=== PATIENT | male | born 1965 | race Caucasian/White ===

== ENCOUNTER → 2017-03-24 | Outpatient (CLI) | payer MEDICAID ==
[2017-03-24 07:53] LABS: Basophils # (A) 0.1 k/uL (0-0.2); Basophils % (A) 1 %; CH 32.6; CHCM 32.1; Eosinophils # (A) 0.2 k/uL (0-0.7); Eosinophils % (A) 4 %; HDW 2.24; HGB 15.5 gm/dL (13.0-17.5); Luc # (Auto) 0.13; Luc % (Auto) 2; Lymphocytes # (A) 1.7 k/uL (1.0-4.8); Lymphocytes % (A) 28 %; MCH 31.6 pg (25.0-35.0); MCHC 30.9 g/dL (31.0-37.0); MCV 102.2 fL (80.0-100.0); Macrocytosis Slight; Mean Platelet Volume 7.6; Monocytes # (A) 0.4 k/uL (0-1.0); Monocytes % (A) 7 %; Neutrophils # (A) 3.5 k/uL (1.3-7.7); Neutrophils % (A) 58 %; RBC 4.89 m/uL (4.30-5.90); RDW 13.1 % (11.5-15.5); WBC 6.1 k/uL (3.8-10.6); WBC (Perox) 5.96
[2017-03-24 11:37] LABS: Iron 86 ug/dL (49-181)
[2017-03-24 11:46] LABS: % Iron Saturation 31.7 % (20-50); Total Iron Binding Capacity 271 ug/dL (261-462)
[2017-03-24 12:44] LABS: Vitamin B12 618 pg/mL (239-931)
== END | disposition home or self-care (01) ==
LOC: LABWHC1 07:16
PROVIDERS: ATTEND Internal Medicine Geriatric Medicine
DX: D64.9 Anemia, unspecified (principal)
CPT/HCPCS: 36415; 82607; 82728; 82746; 83540; 83550; 85025

== ENCOUNTER → 2017-06-29 | Outpatient (CLI) | payer MEDICAID ==
[2017-06-29 07:58] LABS: Basophils # (A) 0.1 k/uL (0-0.2); Basophils % (A) 1 %; CH 33.3; CHCM 33.6; Eosinophils # (A) 0.4 k/uL (0-0.7); Eosinophils % (A) 6 %; HCT 48.1 % (39.0-53.0); HDW 2.34; HGB 15.6 gm/dL (13.0-17.5); Luc # (Auto) 0.14; Luc % (Auto) 2; Lymphocytes # (A) 1.8 k/uL (1.0-4.8); Lymphocytes % (A) 28 %; MCH 32.3 pg (25.0-35.0); MCHC 32.5 g/dL (31.0-37.0); MCV 99.5 fL (80.0-100.0); Monocytes # (A) 0.5 k/uL (0-1.0); Monocytes % (A) 7 %; Neutrophils # (A) 3.5 k/uL (1.3-7.7); Neutrophils % (A) 55 %; RBC 4.84 m/uL (4.30-5.90); RDW 13.4 % (11.5-15.5); WBC 6.3 k/uL (3.8-10.6); WBC (Perox) 6.32
[2017-06-29 09:46] LABS: ALT 43 U/L (21-72); AST 31 U/L (17-59); Alkaline Phosphatase 58 U/L (38-126); Anion Gap 8 mmol/L; Blood Urea Nitrogen 14 mg/dL (9-20); Calcium 9.3 mg/dL (8.4-10.2); Carbon Dioxide 29 mmol/L (22-30); Chloride 103 mmol/L (98-107); Cholesterol 203 mg/dL (<200); Glucose 102 mg/dL (74-99); HDL Cholesterol 78 mg/dL (40-60); Iron 162 ug/dL (49-181); Non-African American GFR(MDRD) >60 (>60 ml/min/1.73 sqM); Potassium 5.6 mmol/L (3.5-5.1); Sodium 140 mmol/L (137-145); Total Bilirubin 0.7 mg/dL (0.2-1.3); Total Protein 6.9 g/dL (6.3-8.2)
[2017-06-29 09:55] LABS: % Iron Saturation 60.4 % (20-50); Total Iron Binding Capacity 268 ug/dL (261-462)
[2017-06-29 10:17] LABS: Prostate Specific Antigen 0.55 ng/mL (0.00-4.00)
[2017-06-29 10:35] LABS: Vitamin B12 843 pg/mL (239-931)
[2017-06-29 11:34] LABS: Hemoglobin A1C 5.5 % (4.2-6.1)
== END | disposition home or self-care (01) ==
LOC: LABWHC1 07:23
PROVIDERS: ATTEND Internal Medicine Geriatric Medicine
DX: E78.5 Hyperlipidemia, unspecified (principal); R03.0 Elevated blood-pressure reading, without diagnosis of hypertension; R73.9 Hyperglycemia, unspecified; N40.0 Benign prostatic hyperplasia without lower urinary tract symptoms; D64.9 Anemia, unspecified
CPT/HCPCS: 36415; 80053; 80061; 82607; 82746; 83036; 83540; 83550; 84153; 84439; 84443; 85025

== ENCOUNTER → 2018-09-24 | Outpatient (CLI) | payer MEDICAID ==
[2018-09-24 13:50] LABS: Basophils # (A) 0.1 k/uL (0-0.2); Basophils % (A) 1 %; Eosinophils # (A) 0.3 k/uL (0-0.7); Eosinophils % (A) 4 %; HCT 42.5 % (39.0-53.0); HGB 13.8 gm/dL (13.0-17.5); Lymphocytes # (A) 1.7 k/uL (1.0-4.8); Lymphocytes % (A) 24 %; MCH 31.7 pg (25.0-35.0); MCHC 32.5 g/dL (31.0-37.0); MCV 97.5 fL (80.0-100.0); Mean Platelet Volume 7.7; Monocytes # (A) 0.5 k/uL (0-1.0); Monocytes % (A) 8 %; Neutrophils # (A) 4.3 k/uL (1.3-7.7); Neutrophils % (A) 62 %; Platelet Count 259 k/uL (150-450); RBC 4.35 m/uL (4.30-5.90); RDW 12.7 % (11.5-15.5)
[2018-09-24 19:12] LABS: ALT 56 U/L (10-49); AST 53 U/L (14-35)
== END | disposition home or self-care (01) ==
LOC: LABWHC1 12:50
PROVIDERS: ATTEND Dermatology Procedural Dermatology
DX: B35.1 Tinea unguium (principal)
CPT/HCPCS: 36415; 84450; 84460; 85025

== ENCOUNTER → 2020-10-13 | Outpatient (CLI) | payer MEDICAID ==
[2020-10-13 09:34] LABS: Basophils # (A) 0.1 k/uL (0-0.2); Basophils % (A) 1 %; Eosinophils # (A) 0.2 k/uL (0-0.7); Eosinophils % (A) 3 %; HCT 49.8 % (39.0-53.0); Lymphocytes # (A) 1.8 k/uL (1.0-4.8); Lymphocytes % (A) 29 %; MCH 31.9 pg (25.0-35.0); MCHC 32.2 g/dL (31.0-37.0); MCV 99.1 fL (80.0-100.0); Mean Platelet Volume 7.9; Monocytes # (A) 0.4 k/uL (0-1.0); Monocytes % (A) 7 %; Neutrophils # (A) 3.8 k/uL (1.3-7.7); Neutrophils % (A) 58 %; Platelet Count 330 k/uL (150-450); RBC 5.03 m/uL (4.30-5.90); RDW 13.2 % (11.5-15.5); WBC 6.5 k/uL (3.8-10.6)
[2020-10-13 16:50] LABS: ALT 20 U/L (10-49); AST 22 U/L (14-35); African American GFR (CKD) 88.4 (60.0-200.0); Alkaline Phosphatase 59 U/L (41-126); BUN/Creat Ratio 14.55 Ratio (12.00-20.00); Calcium 9.3 mg/dL (8.7-10.3); Carbon Dioxide 28.9 mmol/L (21.6-31.8); Chloride 105 mmol/L (96-109); Chol/HDL Ratio 2.42; Cholesterol 186 mg/dL (0-200); Glucose 101 mg/dL (70-110); Non-African American GFR(CKD) 76.2 (60.0-200.0); Potassium 4.4 mmol/L (3.5-5.5); Sodium 140 mmol/L (135-145); Total Bilirubin 0.8 mg/dL (0.2-1.2); Total Protein 6.4 g/dL (6.2-8.2); Triglycerides <50.0 mg/dL (0.0-149.0)
[2020-10-13 17:53] LABS: Hemoglobin A1C 5.3 % (4.0-6.0)
[2020-10-13 18:54] LABS: Prostate Specific Antigen 0.6 ng/mL (0.0-3.5)
== END | disposition home or self-care (01) ==
LOC: LABWHC1 08:10
PROVIDERS: ATTEND Internal Medicine Geriatric Medicine
DX: Z00.00 Encounter for general adult medical examination without abnormal findings (principal); E78.5 Hyperlipidemia, unspecified; D68.2 Hereditary deficiency of other clotting factors; R73.9 Hyperglycemia, unspecified; N40.0 Benign prostatic hyperplasia without lower urinary tract symptoms
CPT/HCPCS: 36415; 80053; 80061; 81241; 83036; 84153; 84443; 85025

== ENCOUNTER 2021-08-13 17:58 | Emergency (ER) | payer MEDICAID ==
--- NOTE | 2021-08-13 19:35 | ED ---
Skin/Abscess/FB HPI - General Chief complaint: Skin/Abscess/Foreign Body Stated complaint: bite on face Time Seen by Provider: 08/13/21 18:31 Source: patient, RN notes reviewed Mode of arrival: ambulatory Limitations: no limitations - History of Present Illness Initial comments: Patient is a 55-year-old male that presents to the emergency department com plaining of right sided upper lip but bite. He notes he was in [facility] about a month ago I blood. Notes it swelled up and got better on its own after a week or 2. He notes that recently started to swell.. He notes he started expressing suffered or squeezing it. He notes that he gets very minimal discharge noted with does have some dark colored blood coming from. He is unsure what kind of bug bite this. 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 He was otherwise well-appearing. He denied any chest pain short of breath headache nausea vomiting diarrhea constipation fever fatigue chills. - Related Data Previous Rx's Medication Instructions Recorded Cephalexin [Keflex] 500 mg PO Q6HR #40 cap 08/13/21 Sulfamethox-Tmp 800-160Mg [Bactrim 1 tab PO Q12HR 10 Days #20 tab 08/13/21 DS 800-160 mg] Allergies Allergy/AdvReac Type Severity Reaction Status Date / Time No Known Allergies Allergy Verified 08/13/21 18:20 Review of Systems ROS Statement: Those systems with pertinent positive or pertinent negative responses have been documented in the HPI. ROS Other: All systems not noted in ROS Statement are negative. Past Medical History Past Medical History: No Reported History History of Any Multi-Drug Resistant Organisms: None Reported Past Surgical History: No Surgical Hx Reported Past Psychological History: No Psychological Hx Reported Smoking Status: Never smoker Past Alcohol Use History: None Reported Past Drug Use History: None Reported General Exam Limitations: no limitations General appearance: alert, in no apparent distress Head exam: Present: atraumatic, normocephalic, normal inspection Eye exam: Present: normal appearance, PERRL, EOMI. Absent: scleral icterus, conjunctival injection, periorbital swelling ENT exam: Present: normal exam, mucous membranes moist Neck exam: Present: normal inspection Respiratory exam: Present: normal lung sounds bilaterally. Absent: respiratory distress, wheezes, rales, rhonchi, stridor Cardiovascular Exam: Present: regular rate, normal rhythm, normal heart sounds. Absent: systolic murmur, diastolic murmur, rubs, gallop, clicks Extremities exam: Present: normal inspection, full ROM, normal capillary refill. Absent: tenderness, pedal edema, joint swelling, calf tenderness Neurological exam: Present: alert, oriented X3 Psychiatric exam: Present: normal affect, normal mood Skin exam: Present: warm, dry, intact, normal color, erythema (Right upper lip, consistent with sinusitis.). Absent: rash Course Vital Signs 08/13/21 18:20 Temperature 97.9 F Pulse Rate 73 Respiratory 16 Rate Blood Pressure 132/66 O2 Sat by Pulse 98 Oximetry Medical Decision Making - Medical Decision Making 55-year-old male with a right upper lip insect bite there is erythematous and minimally tender. Aerobic wound culture obtained. Patient will be sent antibiotics to pharmacy. Case discussed with Dr. Cardona, patient discharge home with follow-up primary care. Disposition Clinical Impression: Cellulitis, Insect bite Disposition: HOME SELF-CARE Condition: Stable Instructions (If sedation given, give patient instructions): Cellulitis (ED) Additional Instructions: Please return to the Emergency Department if symptoms worsen or any other concerns. Taken Biaxin as prescribed until complete. Follow-up primary care 1-2 days. Is patient prescribed a controlled substance at d/c from ED?: No Referrals: Andrew Demarco MD [Primary Care Provider] - 1-2 days Time of Disposition: 19:34
[2021-08-13 20:37] VITALS: BP 131/84; PULSE 86; RESP 18; TEMP 99.1
== END 2021-08-13 20:29 | disposition home or self-care (01) ==
LOC: EC 17:58
DX: L03.90 Cellulitis, unspecified (principal); W57.XXXA Bitten or stung by nonvenomous insect and other nonvenomous arthropods, initial encounter
CPT/HCPCS: 87070; 87205; 99283

== ENCOUNTER → 2021-10-12 | Outpatient (CLI) | payer MEDICAID ==
[2021-10-12 11:22] LABS: Basophils # (A) 0.08 X 10*3/uL (0.00-0.10); Basophils % (A) 1.1 %; Eosinophils # (A) 0.23 X 10*3/uL (0.04-0.35); Eosinophils % (A) 3.3 %; HCT 46.9 % (39.6-50.0); HGB 14.9 g/dL (13.0-17.0); Lymphocytes # (A) 2.01 X 10*3/uL (0.90-5.00); Lymphocytes % (A) 28.7 %; MCH 30.2 pg (27.0-32.0); MCHC 31.8 g/dL (32.0-37.0); MCV 94.9 fL (80.0-97.0); Monocytes # (A) 0.74 X 10*3/uL (0.20-1.00); Monocytes % (A) 10.6 %; Neutrophils # (A) 3.93 X 10*3/uL (1.80-7.70); Neutrophils % (A) 56.2 %; Platelet Count 334 X 10*3/uL (140-440); RBC 4.94 X 10*6/uL (4.40-5.60); RDW 12.8 % (11.5-14.5)
[2021-10-12 12:26] LABS: % Iron Saturation 44.99 (15.00-50.00); African American GFR (CKD) 87.7 (60.0-200.0); Albumin 4.4 g/dL (3.8-4.9); Albumin/Globulin Ratio 2.31 (1.60-3.17); Anion Gap 13.2 mmol/L (10.00-18.00); BUN/Creat Ratio 9.73 Ratio (12.00-20.00); Blood Urea Nitrogen 10.7 mg/dL (9.0-27.0); Calcium 9.4 mg/dL (8.7-10.3); Carbon Dioxide 25.1 mmol/L (20.0-27.5); Ferritin 80.5 ng/mL (22.0-322.0); Folate, Serum 8.6 ng/mL (4.40-31.00); Globulin 1.9 g/dL (1.6-3.3); HDL Cholesterol 66.5 mg/dL (40.00-60.00); Non-African American GFR(CKD) 75.7 (60.0-200.0); Potassium 5.1 mmol/L (3.5-5.5); Prostate Specific Antigen 0.5 ng/mL (0.00-3.50); Total Bilirubin 0.4 mg/dL (0.30-1.20); Total Protein 6.3 g/dL (6.2-8.2); Triglycerides 41.9 mg/dL (0.00-149.00)
[2021-10-12 12:37] LABS: Chol/HDL Ratio 2.89 Ratio
== END | disposition home or self-care (01) ==
LOC: LABWHC1 07:26
PROVIDERS: ATTEND Internal Medicine Geriatric Medicine
DX: Z00.00 Encounter for general adult medical examination without abnormal findings (principal); D64.9 Anemia, unspecified; E78.5 Hyperlipidemia, unspecified; N40.0 Benign prostatic hyperplasia without lower urinary tract symptoms; R73.9 Hyperglycemia, unspecified
CPT/HCPCS: 36415; 80053; 80061; 82607; 82728; 82746; 83036; 83540; 83550; 83721; 84153; 84443; 85025

== ENCOUNTER → 2023-01-18 | Outpatient (CLI) | payer OTHER ==
[2023-01-18 10:34] LABS: Basophils # (A) 0.11 X 10*3/uL (0.00-0.10); Basophils % (A) 1.5 %; Eosinophils # (A) 0.68 X 10*3/uL (0.04-0.35); Eosinophils % (A) 9.6 %; HCT 47.9 % (39.6-50.0); HGB 15.9 g/dL (13.0-17.0); Immature Grans, Automated 0.1 %; Lymphocytes # (A) 2.33 X 10*3/uL (0.90-5.00); Lymphocytes % (A) 32.8 %; MCHC 33.2 g/dL (32.0-37.0); MCV 93.4 fL (80.0-97.0); Mean Platelet Volume 11.3 fL (9.5-12.2); Monocytes # (A) 0.66 X 10*3/uL (0.20-1.00); Monocytes % (A) 9.3 %; NRBC Per 100 WBC 0 /100 WBCS (0.0-0.0); Neutrophils # (A) 3.31 X 10*3/uL (1.80-7.70); Neutrophils % (A) 46.7 %; Platelet Count 351 X 10*3/uL (140-440); RBC 5.13 X 10*6/uL (4.40-5.60)
[2023-01-18 11:11] LABS: ALT 24 U/L (10-49); AST 20 U/L (14-35); African American GFR (CKD) 82.6 (60.0-200.0); Albumin 4.6 g/dL (3.8-4.9); Albumin/Globulin Ratio 2.05 (1.60-3.17); Alkaline Phosphatase 65 U/L (41-126); BUN/Creat Ratio 9.13 Ratio (12.00-20.00); Blood Urea Nitrogen 10.5 mg/dL (9.0-27.0); Calcium 9.5 mg/dL (8.7-10.3); Carbon Dioxide 23.9 mmol/L (20.0-27.5); Chloride 104 mmol/L (96-109); Chol/HDL Ratio 3.06 Ratio; Globulin 2.3 g/dL (1.6-3.3); Glucose 104 mg/dL (70-110); LDL Cholesterol,Calculated 119.7 mg/dL (0.0-131.0); Non-African American GFR(CKD) 71.2 (60.0-200.0); Potassium 4.4 mmol/L (3.5-5.5); Sodium 141 mmol/L (135-145); Total Protein 6.9 g/dL (6.2-8.2); VLDL Calculation 9.48 mg/dL (5.00-40.00)
== END | disposition home or self-care (01) ==
LOC: LABWHC1 07:05
PROVIDERS: ATTEND Internal Medicine Geriatric Medicine
DX: Z00.00 Encounter for general adult medical examination without abnormal findings (principal); E78.5 Hyperlipidemia, unspecified; N40.0 Benign prostatic hyperplasia without lower urinary tract symptoms; R73.9 Hyperglycemia, unspecified
CPT/HCPCS: 36415; 80053; 80061; 83036; 84153; 84443; 85025

== ENCOUNTER 2023-03-31 09:35 | Day surgery (SDC) | payer OTHER ==
[2023-03-29 12:47] VITALS: BMI 24.4
[~2023-03-31 09:35] MED LIST: LACTATED RINGERS 1,000 ML IV SCH; LIDOCAINE 1% (10MG/ML) FOR IV START INTRADERMA PRN
[2023-03-31 09:56] VITALS: TEMP 97.6
[2023-03-31] MEDS ORDERED: PROPOFOL 10 MG/ML 20 ML VIAL IV ONE (10:25)
--- NOTE | 2023-03-31 10:54 | P.PCN ---
Date of Procedure: 03/31/23 Procedure(s) Performed: BRIEF HISTORY: Patient is a 57-year-old pleasant white male scheduled for an elective colonoscopy as a part of screening for colon cancer. PROCEDURE PERFORMED: Colonoscopy with snare polypectomy and Endo Clip placement. PREOPERATIVE DIAGNOSIS: SCREENING FOR COLON CANCER. IV sedation per Anesthesia. PROCEDURE: After informed consent was obtained, the patient, was brought into the endoscopy unit. IV sedation was administered by Anesthesia under continuous monitoring. Digital rectal examination was normal. Initially the Olympus CF-160 flexible video colonoscope was then inserted in the rectum, gradually advanced into the cecum without any difficulty. Careful examination was performed as the scope was gradually being withdrawn. Ileocecal valve and the appendiceal orifice were visualized and appeared normal. Prep was excellent. Mucosa of the cecum appeared normal. Just proximal to the ileocecal valve there was a 3 cm round flat/broad-based polyp which was removed in a piecemeal fashion and almost complete polypectomy was performed. Following the polypectomy 3 endoclips were placed to prevent post-polypectomy bleeding. Rest of the, ascending colon, transverse colon, descending colon, sigmoid colon, and rectum appeared normal. Retroflexion was performed in the rectum and no lesions were seen. The patient tolerated the procedure well. IMPRESSION: 3 cm round flat/broad-based ascending colon polyp just proximal to the ileocecal valve status post piecemeal snare polypectomy followed by Endo Clip placement as described above Rest of the colon appeared normal RECOMMENDATIONS: Findings of this examination were discussed with the patient as well as his family. He was advised to follow up in office in 1 week to discuss the biopsy results and based the biopsy results will plan a repeat colonoscopy in 3-6 months to ensure complete polypectomy
[2023-03-31 11:22] VITALS: BP 117/71; PULSE 51; RESP 16
== END 2023-03-31 11:40 | disposition home or self-care (01) ==
LOC: ORWHC2ENDO 09:35
PROVIDERS: ATTEND Internal Medicine Gastroenterology
DX: Z12.11 Encounter for screening for malignant neoplasm of colon (principal); D12.2 Benign neoplasm of ascending colon; Z79.899 Other long term (current) drug therapy
CPT/HCPCS: 88305; 45382; 45385; J2704

== ENCOUNTER 2023-10-20 13:53 | Day surgery (SDC) | payer OTHER ==
[2023-10-20] MEDS: LACTATED RINGERS 1,000 ML IV SCH ×2 (15:01→16:00)
[2023-10-20 15:11] VITALS: TEMP 97.5
[2023-10-20] MEDS ORDERED: PROPOFOL 10 MG/ML 20 ML VIAL IV ONE (16:01)
--- NOTE | 2023-10-20 16:20 | P.PCN ---
Date of Procedure: 10/20/23 Procedure(s) Performed: BRIEF HISTORY: Patient is a 58-year-old pleasant white male scheduled for an elective colonoscopy as a part of surveillance of large colon polyp that was noted on screening colonoscopy in March 2023. He was noted to have a 3 cm flat broad-based polyp in the ascending colon that was removed by piecemeal snare polypectomy and biopsy revealed tubular villous adenoma. He scheduled for a follow-up colonoscopy today. PROCEDURE PERFORMED: Colonoscopy with biopsy. PREOPERATIVE DIAGNOSIS: Follow-up large colon polyp noted on colonoscopy in March 2023. IV sedation per Anesthesia. PROCEDURE: After informed consent was obtained, the patient, was brought into the endoscopy unit. IV sedation was administered by Anesthesia under continuous monitoring. Digital rectal examination was normal. Initially the Olympus CF-160 flexible video colonoscope was then inserted in the rectum, gradually advanced into the cecum without any difficulty. Careful examination was performed as the scope was gradually being withdrawn. Ileocecal valve and the appendiceal orifice were visualized and appeared normal. Prep was excellent. Mucosa of the cecum, appeared normal. In the ascending colon there was a 3 mm residual polyp at the site of previous polypectomy which was removed by cold biopsy. Rest of the ascending colon, transverse colon, descending colon, sigmoid colon, and rectum appeared normal. Retroflexion was performed in the rectum and no lesions were seen. Scattered sigmoid diverticulosis. The patient tolerated the procedure well. IMPRESSION: 3 mm ascending colon polyp status post cold biopsy Scattered sigmoid diverticulosis RECOMMENDATIONS: Findings of this examination were discussed with the patient well as his family. He was advised to follow with the biopsy results and have a repeat colonoscopy in 3 years..
[2023-10-20 17:06] VITALS: BP 133/76; PULSE 67; RESP 20
== END 2023-10-20 17:00 | disposition home or self-care (01) ==
LOC: ORWHC2ENDO 13:53
PROVIDERS: ATTEND Internal Medicine Gastroenterology
DX: Z12.11 Encounter for screening for malignant neoplasm of colon (principal); K63.5 Polyp of colon; K57.30 Diverticulosis of large intestine without perforation or abscess without bleeding; Z86.010 Personal history of colon polyps; Z79.899 Other long term (current) drug therapy
CPT/HCPCS: 88305; 45380; J2704

== ENCOUNTER → 2024-01-10 | Outpatient (CLI) | payer OTHER ==
[2024-01-10 09:29] LABS: Appearance,Urine Clear (Clear); Bilirubin,Urine Negative (Negative); Blood,Urine Negative (Negative); Color,Urine Yellow; Glucose,Urine (UA) Negative (Negative); Ketones,Urine Negative (Negative); Leukocyte Esterase,Urine Negative (Negative); Nitrite,Urine Negative (Negative); PH, Urine 5.5 (5.0-8.0); Protein,Urine Negative (Negative); Specific Gravity,Urine 1.021 (1.001-1.035); Urobilinogen,Urine <2.0 mg/dL (<2.0)
[2024-01-10 11:54] LABS: WBC 5.89 X 10*3/uL (4.50-10.00)
[2024-01-10 11:55] LABS: Basophils # (A) 0.07 X 10*3/uL (0.00-0.10); Basophils % (A) 1.2 %; Eosinophils # (A) 0.16 X 10*3/uL (0.04-0.35); Eosinophils % (A) 2.7 %; HCT 45.9 % (39.6-50.0); HGB 15.5 g/dL (13.0-17.0); Lymphocytes # (A) 1.73 X 10*3/uL (0.90-5.00); Lymphocytes % (A) 29.4 %; MCH 31.5 pg (27.0-32.0); MCHC 33.8 g/dL (32.0-37.0); MCV 93.3 FL (80.0-97.0); Mean Platelet Volume 10.8 FL (9.5-12.2); Monocytes # (A) 0.65 X 10*3/uL (0.20-1.00); NRBC Per 100 WBC 0 X 10*3/uL (0.00-0.01); Neutrophils # (A) 3.26 X 10*3/uL (1.80-7.70); Neutrophils % (A) 55.4 %; Platelet Count 306 X 10*3/uL (140-440); RBC 4.92 X 10*6/uL (4.40-5.60); RDW 13.1 % (11.5-14.5)
[2024-01-10 13:28] LABS: % Iron Saturation 40.55 (15.00-50.00); ALT 20 U/L (10-49); AST 22 U/L (14-35); Albumin 4.4 g/dL (3.8-4.9); Alkaline Phosphatase 59 U/L (41-126); BUN/Creat Ratio 7.27 Ratio (12.00-20.00); C Reactive Protein, High Sens 0.204 mg/L (0.000-3.000); Calcium 9.5 mg/dL (8.7-10.3); Carbon Dioxide 26.3 mmol/L (21.6-31.8); Chloride 106 mmol/L (96-109); Chol/HDL Ratio 2.48 Ratio; Ferritin 82.1 ng/mL (22.0-322.0); Globulin 2.1 g/dL (1.6-3.3); Glucose 103 mg/dL (70-110); Iron 118 UG/DL (65-175); LDL Cholesterol,Calculated 96.2 mg/dL (0.0-131.0); Phosphorus 2.9 mg/dL (2.4-5.1); Potassium 4.6 mmol/L (3.5-5.5); Prostate Specific Antigen 0.46 ng/mL (0.000-3.500); Sodium 142 mmol/L (135-145); T4, Free (Free Thyroxine) 1.29 ng/dL (0.80-1.80); Total Bilirubin 0.4 mg/dL (0.3-1.2); Total Iron Binding Capacity 291 UG/DL (228-460); Total Protein 6.5 g/dL (6.2-8.2); Uric Acid 6.1 mg/dL (3.7-8.7); VLDL Calculation 6.52 mg/dL (5.00-40.00)
[2024-01-10 14:23] LABS: Thyroid Peroxidase Antibodies <9.0 U/mL (0.0-33.0)
[2024-01-11 09:23] LABS: Lipoprotein A 69 mg/dL (0-30)
[2024-01-17 07:37] LABS: Casein IgG <2.0 mcg/mL (<2.0)
== END | disposition home or self-care (01) ==
LOC: LABWHC1 07:12
PROVIDERS: ATTEND Family Medicine
DX: K52.9 Noninfective gastroenteritis and colitis, unspecified (principal); J30.9 Allergic rhinitis, unspecified; D68.8 Other specified coagulation defects; E06.3 Autoimmune thyroiditis; E34.9 Endocrine disorder, unspecified; E78.00 Pure hypercholesterolemia, unspecified; R73.09 Other abnormal glucose; R53.83 Other fatigue
CPT/HCPCS: 36415; 80053; 80061; 81003; 82306; 82607; 82627; 82728; 82746; 83036; 83090; 83540; 83550; 83695; 83735; 84100; 84140; 84153; 84403; 84432; 84439; 84443; 84481; 84482; 84550; 85025; 85384; 86001; 86141; 86376

== ENCOUNTER → 2024-06-19 | Outpatient (CLI) | payer OTHER ==
[2024-06-19 10:39] LABS: Basophils % (A) 1.9 %; Eosinophils # (A) 0.28 X 10*3/uL (0.04-0.35); Eosinophils % (A) 5.3 %; HCT 46.9 % (39.6-50.0); HGB 15.2 g/dL (13.0-17.0); Lymphocytes # (A) 1.58 X 10*3/uL (0.90-5.00); Lymphocytes % (A) 30.1 %; MCHC 32.4 g/dL (32.0-37.0); MCV 98.7 FL (80.0-97.0); Mean Platelet Volume 10.9 FL (9.5-12.2); Monocytes # (A) 0.58 X 10*3/uL (0.20-1.00); NRBC Per 100 WBC 0 X 10*3/uL (0.00-0.01); Neutrophils % (A) 51.5 %; Platelet Count 342 X 10*3/uL (140-440); RBC 4.75 X 10*6/uL (4.40-5.60); WBC 5.25 X 10*3/uL (4.50-10.00)
[2024-06-19 10:56] LABS: ALT 20 U/L (10-49); AST 20 U/L (14-35); Albumin 4.5 g/dL (3.8-4.9); Albumin/Globulin Ratio 2.25 Ratio (1.60-3.17); Alkaline Phosphatase 66 U/L (41-126); BUN/Creat Ratio 11.27 Ratio (12.00-20.00); Blood Urea Nitrogen 12.4 mg/dL (9.0-27.0); Calcium 9.2 mg/dL (8.7-10.3); Chloride 103 mmol/L (96-109); Glucose 105 mg/dL (70-110); LDH 143 U/L (120-246); Phosphorus 3.3 mg/dL (2.4-5.1); Potassium 4.6 mmol/L (3.5-5.5); Sodium 143 mmol/L (135-145); Total Bilirubin 0.3 mg/dL (0.3-1.2); Total Protein 6.5 g/dL (6.2-8.2); Uric Acid 5.8 mg/dL (3.7-8.7)
[2024-06-19 11:07] LABS: Homocysteine 12.1 UMOL/L (4.00-14.00)
== END | disposition home or self-care (01) ==
LOC: LABWHC1 06:54
PROVIDERS: ATTEND Family Medicine
DX: Z00.00 Encounter for general adult medical examination without abnormal findings
CPT/HCPCS: 36415; 80053; 82306; 82465; 82607; 82627; 83036; 83090; 83615; 83695; 83735; 84100; 84550; 85025